=== PATIENT | female | born 1985 | race Caucasian/White ===

== ENCOUNTER 2025-10-11 08:14 | Emergency (ER) | payer OTHER, SELFPAY ==
--- NOTE | ~2025-10-11 | XR_ITS ---
EXAMINATION: XR foot RT min 3V DATE: 10/11/2025 08:36 INDICATION: Pain TECHNIQUE: Right foot were obtained. COMPARISON: None. IMPRESSION: 1. No displaced fracture dislocation or aggressive bone lesion seen. 2. No suspicious radiopaque foreign body seen. Reviewed, dictated and finalized at location A. 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
--- OUTSIDE RECORDS SUMMARY | 2025-10-11 08:19 | XMS_ITS | Clinical Summary ---
Author Organization [facility] Address [address] [place] [address] Care Team Providers Care Vehicle Modification Technician Name Role Phone Lito Spain MD Primary Care Provider [phone] Source Comments [facility],non-owned Affiliates and Associated Physician Practices is amultiple site organization consisting of ambulatory clinics and hospital sitesin [place], [place], [place] and [place]. This disclosure is being madepursuant to the Care Everywhere program and may not contain all information available regarding this patient. Last updated 18.[facility] Allergies Active Allergy Reactions Criticality Noted Date Comments Amoxicillin 11/12/2016 Azithromycin 11/12/2016 Doxycycline 11/12/2016 Penicillins 11/12/2016 Medications * Be aware that medications may not be up to date on this document. Alwaysverify current medications with the patient. Norethin-Eth Estrad-Fe Biphas (LO LOESTRIN FE PO) Active METFORMIN HCL PO Act huan glipiZIDE (GLUCOTROL) 10 MG tablet Take one tablet by mouth twice a day before meals. 05/09/2019 Active lisinopril (PRINIVIL; ZESTRIL) 10 MG tablet Take 10 mg by mouth once daily 01/26/2019 Active norethin-eth estrad-fe biphas (LO LOESTRIN FE) tablet Active predniSONE (DELTASONE) 20 MG tabletIndication s:Dermatitis Take 1 tablet by mouth 2 times daily 14 tablet 05/10/2019 Active Active Problems Problem Noted Date Diagnosed Date Type 2 diabetes mellitus 12/15/2011 Overview (05/10/2019): Overview: Type 2 DM Calculus of kidney 05/15/2005 Overview (05/10/2019): Overview: Nephrolithiasis Social History Tobacco Use Types Packs/Day Years Used Date Smoking Tobacco: Never Smokeless Tobacco: Never Comments No Sex and Gender Information Value Date Recorded Sex Assigned at Not on file Legal Sex Female 2:40 PM [employer] Gender Identity Not on file Sexual Orientation Not on file Last Filed Vital Signs Vital Sign Reading Time Taken Comments Blood Pressure 116/78 05/10/2019 6:22 PM CDT Pulse 93 05/10/2019 6:22 PM CDT Temperature 36.9 C (98.5 F) 05/10/2019 6:22 PM CDT Respiratory Rate 17 05/10/2019 6:22 PM CDT Oxygen Saturation 97% 05/10/2019 6:22 PM CDT Inhaled Oxygen Concentration - - Weight 88.5 kg (195 lb) 05/10/2019 6:22 PM CDT Height 162.6 cm (5' 4) 05/10/2019 6:22 PM CDT Body Mass Index 33.47 05/10/2019 6:22 PM CDT Plan of Treatment Health Maintenance Due Date Last Done Comments HIV SCREENING 2002 HEPATITIS C SCREENING 01/24/2005 DIABETES-SERUM CREATININE 2005 DTAP/TDAP/TD VACCINES (1 - Tdap) 2006 HEPATITIS B VACCINE (1 of 3 - 19+ 3-dose series) 2006 HPV VACCINE (1 - 3-dose SCDM series) 2014 DIABETES-FOOT EXAM WITH MONOFILAMENT 05/10/2019 DIABETES-HGB A1C 05/10/2019 DEPRESSION SCREENING 11/30/2024 DIABETES - URINE PROTEIN SCREENING 11/30/2024 COVID-19 VACCINE ( season) 2025 INFLUENZA VACCINE (#1) 2025 8, 08/31/2017, 09/17/2016, Additional history exists ZOSTER VACCINE (1 of 2) 2037 HIB VACCINE Aged Out No longer eligi ble based on patient's age to complete this topic MENINGOCOCCAL (Group B) VACCINE SHARED DECISION-MAKING Aged Out No longer eligible based on patient's age to complete this topic MENINGOCOCCAL GROUPS A/C/Y/W VACCINE Aged Out No longer eligible based on patient's age to complete this topic PNEUMOCOCCAL VACCINE Aged Out No long er eligible based on patient's age to complete this topic [place] [address] Care Teams Vehicle Modification Technician Relationship Specialty Start Date End Date [place] [address] PCP - General Internal Medicine 11/12/16
--- OUTSIDE RECORDS SUMMARY | 2025-10-11 08:19 | XMS_ITS | Clinical Summary ---
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 Name Role Phone Lito Spain MD Primary Care Provider [phone] Allergies Active Allergy Reactions Criticality Noted Date Comments Amoxicillin Unknown 11/12/2016 Azithromycin Rash 11/12/2016 Reaction: Rash, , Doxycycline Rash 11/12/2016 Reaction: Rash, Penicillins Rash 11/12/2016 Reaction: Rash, Medications norethindrone ac-eth estradiol (MICROGESTIN 12/19) 1-20 mg-mcg per tablet 9 Active valACYclovir (VALTREX) 500 mg tablet 1 Active semaglutide (OZEMPIC) 2 mg/dose (8 mg/3 mL) pen injector injectionIndica tions:type 2 diabetes mellitus Inject 2 mg under the skin every 7 days E11.9 9 mL 4 4 Active empagliflozin-m etformin (Synjardy XR) 25-1,000 mg tablet, IR & ER, biphasic 24hrIndications :type 2 diabetes mellitus Take 1 tablet by mouth daily E11.65 90 tablet 4 4 Active metFORMIN (GLUCOPHAGE) 1,000 mg tablet Take 1 tablet (1,000 mg total) by mouth nightly E11.65 90 tablet 4 4 Active buPROPion SR (ZYBAN) 150 mg 12 hr tabletIndicatio ns:Mood disorder with depressive features due to general medical condition TAKE 1 TABLET TWICE A DAY 180 tablet 3 5 Active blood-glucose sensor device 1 Device continuously Change every 15 days. E11.65 6 each 3 5 Active atorvastatin (LIPITOR) 10 mg tablet TAKE 1 TABLET DAILY 90 tablet 3 5 Active tiZANidine (ZANAFLEX) 4 mg tabletIndicatio ns:Muscle Spasm Take 1 tablet (4 mg total) by mouth every 6 (six) hours as needed for muscle spasms 30 tablet 5 Active lisinopriL (PRINIVIL,ZESTR IL) 10 mg tabletIndicatio ns:Type 2 diabetes mellitus with hyperglycemia, without long-term current use of insulin (HCC) TAKE 1 TABLET DAILY 100 tablet 1 5 Active Active Problems Problem Noted Date Diagnosed Date Annual physical exam 05/24/2025 Assessment & Plan (05/24/2025 8:27 AM CDT): Visit preventive in nature. We reviewed medications, chronic conditions, risk factors, lifestyle recommendations. Reviewed immunization recommendations. Follow-up in 1 year for annual wellness. Hypertension associated with diabetes 05/24/2025 Assessment & Plan (05/24/2025 8:29 AM CDT): Well controlled on lisinopril. Will continue. Tachycardia 01/27/2024 Assessment & Plan (01/27/2024 3:33 PM BAR USEFUL OR BUSSER): ECG reviewed. Sinus tachycardia without other concerning findings. Will continue to monitor. Freestyle Leydi continuous glucose monitoring de 10/08/2023 Assessment & Plan (08/07/2025 3:18 PM CDT): Continuous glucose monitor (cgm) applied from 07/25/2025 to 0 08/07/2025 This device was placed for monitor and treatment of blood sugar. Interpretation of data- average glucose 145, in target range 79%, hyperglycemia 21 %, 0 % hypoglycemia Assessment & Plan (02/01/2025 3:43 PM BAR USEFUL OR BUSSER): Continuous glucose monitor (cgm) applied from 01/19/2025 to 02/01/2025 This device was placed for monitor and treatment of blood sugar. Interpretation of data- average glucose 161, in target range 67 %, hyperglycemia 23 %, 0 % hypoglycemia Assessment & Plan (08/04/2024 9:33 AM CDT): Continuous glucose monitor (cgm) applied from 07/21/2024 to 08/03/2024 This device was placed for monitor and treatment of blood sugar. Interpretation of data- average glucose 159, in target range 68 %, hyperglycemia 30 %, 2 % hypoglycemia Assessment & Plan (10/08/2023 4:57 PM BAR USEFUL OR BUSSER): Continuous glucose monitor (cgm) applied from 09/25/2023 to 10/08/2023 This device was placed for monitor and treatment of blood sugar. Interpretation of data- average glucose 179, in target range 54%, hyperglycemia 46%, 0 hypoglycemia Overweight with body mass in dex (BMI) of 28 to 28.9 in adult 11/19/2021 Assessment & Plan (08/04/2024 9:34 AM CDT): This is a chronic condition which has improved 7 lbs. Weight loss since last office visit Encouraged healthy eating which includes a low carb diet. Avoiding processed foods, sweets and fried foods. Encouraged 30 minutes of walking at least 5 days per week Assessment & Plan (08/04/2024 9:34 AM CDT): >>ASSESSMENT AND PLAN FOR CLASS 1 OBESITY DUE TO EXCESS CALORIES WITH SERIOUS COMORBIDITY AND BODY MASS INDEX (BMI) OF 30.0 TO 30.9 IN ADULT WRITTEN ON 11/19/2021 11:52 AM BY PILO GUTIERREZ NP Discussed healthy diet and importance of regular physical activity. Assessment & Plan (08/04/2024 9:34 AM CDT): >>ASSESSMENT AND PLAN FOR CLASS 1 OBESITY DUE TO EXCESS CALORIES WITH SERIOUS COMORBIDITY AND BODY MASS INDEX (BMI) OF 30.0 TO 30.9 IN ADULT WRITTEN ON 05/20/2023 2:17 PM BY JEN COLINDRES NP This is a chronic condition which is improving 7 lb weight loss since January 22 Started on Ozempic 0.25 mg for 4 weeks then proceed to 0.5 mg on week 5 Assessment & Plan (08/04/2024 9:34 AM CDT): >>ASSESSMENT AND PLAN FOR CLASS 1 OBESITY DUE TO EXCESS CALORIES WITH SERIOUS COMORBIDITY AND BODY MASS INDEX (BMI) OF 30.0 TO 30.9 IN ADULT WRITTEN ON 10/08/2023 4:56 PM BY JEN COLINDRES NP This is a chronic condition which continues Additional 8 lb weight loss since last office visit Will increase Ozempic to 1 mg to promote further weight loss Encouraged healthy eating and exercise Assessment & Plan (08/04/2024 9:34 AM CDT): >>ASSESSMENT AND PLAN FOR CLASS 1 OBESITY DUE TO EXCESS CALORIES WITH SERIOUS COMORBIDITY AND BODY MASS INDEX (BMI) OF 30.0 TO 30.9 IN ADULT WRITTEN ON 12/03/2023 4:08 PM BY HARRIS RODRÍGUEZ NP Continue with diabetic diet. Hyperlipidemia associated with type 2 diabetes nita lay 12/07/2020 Assessment & Plan (05/24/2025 8:27 AM CDT): Lipid panel ordered. Will plan accordingly once results are received. Continues on atorvastatin. Assessment & Plan (08/04/2024 9:32 AM CDT): This is a chronic condition which is at goal . Goal is LDL less than 70 Continue atorvastatin Encouraged to eat healthy, include fresh fruits and vegetables daily and avoid eating fried foods more than once per week. Assessment & Plan (12/03/2023 4:08 PM BAR USEFUL OR BUSSER): LDL 59. Tolerating statin. Will continue to monitor. Assessment & Plan (10/08/2023 4:58 PM BAR USEFUL OR BUSSER): This is a chronic condition which is not at goal of LDL less than 70 Continue atorvastatin Encouraged to eat healthy, include fresh fruits and vegetables daily and avoid eating fried foods more than once per week. Encouraged to take medications as prescribed. Assessment & Plan (12/07/2020 11:56 PM BAR USEFUL OR BUSSER): Lipid panel ordered; will call w/results when received. Reviewed diet/exercise recommendations. Mild episode of recurrent major depressive disor francisco 11/08/2019 Assessment & Plan (12/03/2023 4:08 PM BAR USEFUL OR BUSSER): Reports stable on bupropion. No changes. Will continue to monitor. Assessment & Plan (11/19/2021 11:54 AM BAR USEFUL OR BUSSER): No changes in current regimen. Assessment & Plan (07/23/2021 9:44 PM CDT): Feels moods are improving and is happy with buproprion. No changes at this time. Discussed benefits of counseling with patient. Assessment & Plan (12/08/2020 12:00 AM BAR USEFUL OR BUSSER): Reports good control of depression w/current regimen. No changes to be made at this time. Reviewed med Ses & scheduling. Reviewed red flags. Assessment & Plan (12/20/2019 8:19 AM BAR USEFUL OR BUSSER): Reports great improvement w/depression on current dose. Reports good control of depression w/current regimen. No changes to be made at this time. Reviewed med Ses & scheduling. Reviewed red flags. Assessment & Plan (11/08/2019 8:27 AM BAR USEFUL OR BUSSER): Had been on wellbutrin previously but stopped for unknown reasons. Recently resumed on her own; had pills at home. Would like her to f/u in 5-7 weeks. Feels that it is improving her mood already. Feels less on edge. Type 2 diabetes mellitus wit hout complication, without long-term current use of insulin 12/15/2011 Overview (03/05/2017): Type 2 DM Assessment & Plan (05/24/2025 8:28 AM CDT): Near goal. Continues working closely with endocrinology. Assessment & Plan (08/04/2024 9:36 AM CDT): This is a chronic condition which is at goal with 2% hypoglycemia between 12:00 a.m. and 3:00 a.m.. Goal is less than 7%. Personally reviewed most recent A1c - Lab Results Component Value Date HGBA1C 6.6 08/04/2024 Personally reviewed POC blood sugar- at goal of 80-180 Lab Results Component Value Date POCGLU 151 08/04/2024 Medication- Stop Jardiance 25mg po daily and Metformin 1000mg po twice daily. Switch to Synjardy 25/1000mg 1 tablet daily Stop glipizide 10mg po twice daily. Increase ozempic 2 mg weekly. - may take 2 1mg injection until current supply is completed. Monitor blood sugar continuously with cgm. Upgraded to Elydi 3 Encouraged annual eye exam. last dilated eye exam was [facility] Monofilament foot exam completed. Protective senses intact eGFR- 107 Kidney function-normal Urine microalbumin/creatinine ratio - at goal. Goal is <30 Continue lisinopril Assessment & Plan (01/27/2024 3:32 PM BAR USEFUL OR BUSSER): Blood glucose 209 today. Continue with hydration and increase to solids as tolerated. Continue monitoring blood glucose at home. Red flags reviewed. Assessment & Plan (12/03/2023 4:09 PM BAR USEFUL OR BUSSER): A1c improving. 7.5% when last checked with Endo. Strong family hx. Continues to follow with endocrinology. Assessment & Plan (10/08/2023 4:55 PM BAR USEFUL OR BUSSER): This is a chronic condition which is inadequately controlled, improving not at goal of less than 7%. Personally reviewed most recent A1c - Lab Results Component Value Date HGBA1C 7.5 10/08/2023 Personally reviewed POC blood sugar- at goal 80-180 Lab Results Component Value Date POCGLU 131 10/08/2023 Medication- continue Jardiance 25mg po daily, Metformin 1000mg po twice daily, glipizide 10mg po twice daily. Increase 1mg weekly. Monitor blood sugar continuously with freestyle leydi 2 sensor. Encouraged annual eye exam. Monofilament foot exam completed. protective senses intact Personally reviewed CMP eGFR- 112 Kidney function- normal Urine microalbumin/creatinine ratio - at goal <30 treated with lisinopril B/P today- at goal of <140/90. continue lisinopril Personally reviewed lipid panel. Not at Goal of less than 70. Continue atorvastatin Assessment & Plan (05/20/2023 2:19 PM CDT): This is a chronic condition which is improving, but not at goal of less than 7%. Personally reviewed most recent A1c - Lab Results Component Value Date HGBA1C 8.1 05/20/2023 Personally reviewed POC blood sugar- at goal 80-180 Lab Results Component Value Date POCGLU 142 05/20/2023 Medication- Continue Jardiance 25mg po daily, Metformin 1000mg po twice daily, glipizide 10mg po twice daily. Add ozempic 0.25 mg weekly for 4weeks, on week #5 increase ozempic to 0.5mg weekly. Monitor blood sugar continuously with sensor. Encouraged annual eye exam. last dilated eye exam was completed in 01/22 Monofilament foot exam completed. protective senses intact Personally reviewed CMP eGFR- 112 Kidney function- normal Urine microalbumin/creatinine ratio - at goal <30 reated with lisinopril B/P today- at goal of <140/90. continue lisinopril. Personally reviewed lipid panel. at Goal of less than 70. Continue atorvastatin Discussed the progression of the disease of diabetes Discussed insulin resistance and how it is affecting her body Discussed insulin production Discussed the use Ozempic and how this peptide will affect her body Reviewed how to given Ozempic injection Denies any history of thyroid cancer or pancreatitis Discussed side effects of Ozempic her weight loss Encouraged to call office for side effects of nausea vomiting or abdominal pain Assessment & Plan (11/19/2021 11:53 AM BAR USEFUL OR BUSSER): Lab Results Component Value Date HGBA1C 8.3 11/19/2021 HGBA1C 8.9 (H) 07/19/2021 HGBA1C 8.1 (H) 12/19/2019 Decrease in a1c, patient notes BS levels for the past 2 weeks have improved. Motivated to work on diet and exercise. Will plan to repeat a1c in 3 months and makes changes as needed if elevated. Reviewed goal <7%. Assessment & Plan (07/23/2021 9:43 PM CDT): Lab Results Component Value Date HGBA1C 8.9 (H) 07/19/2021 HGBA1C 8.1 (H) 12/19/2019 HGBA1C 9.8 (H) 06/06/2019 Patient has increased motivation to work on diet and lifestyle changes. Reviewed increasing Jardiance but would like to hold off for 3 months until next A1C check. Reviewed need to lose weight and track diet/decrease concentrated sweets. Stressed importance of monitoring blood sugars at home and bringing blood sugar log to next appointment in 3 months. Foot exam normal today. Assessment & Plan (12/08/2020 12:03 AM BAR USEFUL OR BUSSER): No labs since last year. Lab Results Component Value Date HGBA1C 8.1 (H) 12/19/2019 HGBA1C 9.8 (H) 06/06/2019 Refilled all diabetic medications. . Reviewed dietary/exercise recommendations. Instructed to perform daily foot check. Reviewed medication side effects & scheduling. To check/record FSBS & bring to appointments. Labs ordered; will call with results when received. To make follow up appointment in 6 months. Reviewed red flags; what would warrant further evaluation. Assessment & Plan (11/08/2019 8:29 AM BAR USEFUL OR BUSSER): Has not had labs checked since last appt. Will go sometime this week to completed. Reviewed dietary/exercise recommendations. Instructed to perform daily foot check. Reviewed medication side effects & scheduling. To check/record FSBS & bring to appointments. Labs ordered; will call with results when received. To make follow up appointment in 3 months. Reviewed red flags; what would warrant further evaluation. Assessment & Plan (06/08/2019 12:51 PM CDT): Poorly controlled diabetic. Poor compliance with diabetic treatment and testing. Last A1c=9.8% Stressed need to watch intake and monitor blood sugars. Reviewed end-organ damage related to elevated blood sugars. Reviewed recommendations in diet and exercise. Stressed need to take medications as ordered. Discussed diabetic eye exam; need yearly. To send any past eye exams to our office. Stressed need to have labs drawn so we can better treat diabetes. Will contact with lab results once received. Jardiance 10mg daily sent. Reviewed med SE & scheduling. Will continue metformin & glipizide. Will have labs repeated 3 months after addition of Jardiance & make appt to go over results. Resistant to basal insulins at this time. Will trial jardiance to see if any improvement. Discussed endocrine referral, discussed different medications. Stressed need for dietary changes. Resolved Problems Problem Noted Date Diagnosed Date Resolved Date Viral gastroenteritis 01/27/20242023 Assessment & Plan (01/27/2024 3:35 PM BAR USEFUL OR BUSSER): Tachycardic. She is urinating and starting to tolerate solids today. Discussed recommendation for ED for IV hydration. With her symptoms improving today she will monitor closely at home and we will send in Reglan. Reviewed the scheduling and side effects. We gave strict instructions to present to the ED if worsening tonight. Message through [employer] tomorrow with update. She is in agreement with plan and states understanding. BMI 33.0-33.9,adult 12/07/2020 11/19/20 Assessment & Plan (07/23/2021 9:45 PM CDT): Discussed healthy diet and importance of regular physical activity. Discussed benefit of weight loss on overall health. Assessment & Plan (12/07/2020 11:56 PM BAR USEFUL OR BUSSER): Reviewed need to lose weight, reviewed health benefits. Reviewed recommendations for daily intake & activity 20-30 minutes/day. Discussed healthy diet and importance of regular physical activity. Left ankle strain, initial encounter 12/19/2019 12/07/2020 Assessment & Plan (12/20/2019 8:19 AM BAR USEFUL OR BUSSER): NSAIDs of choice, to apply ice to area x15 min every 1-2 hours. Discussed RICE. Will keep elevated. Discussed gentle ROM. Reviewed red flags; what would warrant rtc. Rib pain on left side 11/08/20192019 Assessment & Plan (11/08/2019 8:28 AM BAR USEFUL OR BUSSER): Declines rib xray. Discussed splinting area when coughing/sneezing, with position changes. To continue otc ibuprofen/tylenol. Tramadol sent for more severe pain. Aware that it may take 6-8 weeks for pain to improve. Discussed cough/deep breath to prevent consolidation in lungs. Reviewed red flags. BMI 34.0-34.9,adult 11/07/2019 12/07/19 Assessment & Plan (12/20/2019 8:20 AM BAR USEFUL OR BUSSER): Reviewed need to lose weight, reviewed health benefits. Reviewed recommendations for daily intake & activity 20-30 minutes/day. Discussed healthy diet and importance of regular physical activity. Assessment & Plan (11/08/2019 8:26 AM BAR USEFUL OR BUSSER): Reviewed need to lose weight, reviewed health benefits. Reviewed recommendations for daily intake & activity 20-30 minutes/day. Discussed healthy diet and importance of regular physical activity. Rash 06/30/2016 12/08/2020 Overview (03/05/2017): Rash Calculus of kidney 05/15/2005 3 Overview (03/05/2017): Nephrolithiasis Encounters Date Type Department Care Team Description 08/10/2025 Orders Only [facility] [address] [place] [address] Ariane Morse NP Pain in right upper arm 08/08/2025 Results Follow-Up [facility] Care at [address] [phone] Jen Colindres NP Albumin Creatinine Ratio, Urine 08/07/2025 3:30 PM CDT - 08/07/2025 11:59 PM CDT Hospital Encounter [facility] Outpatient Lab - Outpatient Center at [address] [address] Type 2 diabetes mellitus with hypoglycemia without coma, without long-term current use of insulin (HCC) Discharge Disposition: Discharge to home or self care 08/07/2025 3:30 PM CDT Office Visit [facility]ocrine [facility] at [address] [place] [phone] Jen Colindres NP Type 2 diabetes mellitus with hypoglycemia without coma, without long-term current use of insulin (HCC) (Primary Dx); Hypertension associated with diabetes (HCC); Hyperlipidemia associated with type 2 diabetes mellitus (HCC); Freestyle Leydi continuous glucose monitoring device; Overweight with body mass index (BMI) of 28 to 28.9 in adult 07/13/2025 Results [facility]Up [facility] [address] [address] Ariane Morse NP XR Elbow Right 3+ Vw, MRI Shoulder Right WO Contrast 07/12/2025 Results [facility] [address] [address] Harris Rodríguez NP Hepatitis C antibody Blood, Hepatitis B surface antibody (immune status) Blood, Hepatitis B core antibody, total Blood, Additional followed-up results: 6 07/11/2025 1:51 PM CDT - 07/11/2025 11:59 PM CDT Hospital Encounter [address] [address] Pain in right upper arm Discharge Disposition: Discharge to home or self care 07/11/2025 9:15 AM CDT Office Visit [facility] at [address] [place] [address] Lacie Scales NP Irritation of right eye (Primary Dx); Acute viral conjunctivitis of right eye 07/11/2025 8:45 AM CDT Lab [facility] [address] [place] [phone] Annual physical exam; Hyperlipidemia associated with type 2 diabetes mellitus (HCC) from Last 3 Months Immunizations Immunization Administration Dates Next Due Influenza, Quadrivalent, Erika l Culture-based MDCK, Preservative Free, Antibiotic Free, Intramuscular 09/25/2022 Influenza, Quadrivalent, Spl it, Intramuscular 09/22/2019 Influenza, Quadrivalent, Spl it, Preservative Free, Intramuscular 09/24/2023,09/20/2020,09/21/2019,09/22,09/17/2016,10/29/2015 Influenza, Trivalent, IM (MDV) 09/26/2021,2013 Influenza, Trivalent, Preser vative Free, Intramuscular 09/21/2024 Influenza, Unspecified 09/22/2022,2020,09/13/2020,09/22,08/31/2018,08/31/2017 Moderna SARS-CoV-2 Monovalen t Vaccination (12+ YRS) 01/18/2021,12/21/2020 Rho (D) Immune Globulin, IV or IM 03/06/2016 Surgical History Surgery Date Site/Laterality Comments LASIK 11/30/2017 - 12/30/2017 Medical History Medical History Date Comments Type 2 diabetes mellitus Diabete s type 2; Comments: [facility] 02/12/2015 - Hx Other Medical 01/2014 kidney stones; Comments: [facility] 02/12/2015 - Covid-19 11/2020 Diabetic retinopathy associa mack with type 2 diabetes mellitus (HCC) Calculus of kidney 05/15/2005 Nephrolithias is Anxiety Viral gastroenteritis 01/27/2024 Family History Medical History Relation Name Comments Arthritis Father Navjot Diabetes Father Navjot Heart disease Father Navjot Cardiovascular disease; Hypertension Father Navjot Hypertension; Obesity Father Navjot Other Father Navjot OR in 2009; Skin cancer Father Navjot Cancer, skin; Diabetes Father's Sister x 2 Diabetes type II Father's Sister x 2 Diabetes mellitus type 2; Diabetes Maternal Grandfather Brendon Breast cancer Mother Cindy Cancer, breast ; Cancer Mother Cindy Diabetes Mother Cindy Diabetes type II Mother Cindy Diabetes me llitus type 2; Obesity Mother Cindy Relation Name Status Comments Father Navjot Alive Father's Sister x 2 Maternal Grandfather Brendon Alive Mother Cindy Alive Social History Tobacco Use Types Packs/Day Years Used Date Smoking Tobacco: Never Smokeless Tobacco: Never Tobacco Cessation:Counseling Given: Not Answered Alcohol Use Standard Drinks/Week Comments Not Currently 0 (1 standard drink = 0.6 oz pur e alcohol) very occasionally AUDIT-C Answer Date Recorded Q1: How often do you have a drink containing alc ohol? Monthly or less 01/27/2024 Q2: How many drinks containi ng alcohol do you have on a typical day when you are drinking? 1 or 2 01/27/2024 Q3: How often do you have si x or more drinks on one occasion? Never 01/27/2024 PHQ-2 Answer Date Recorded PHQ-2 Total Score (If total score is 3 or more points, staff should administer the PHQ-9) 0 07/04/2025 Comments No Sex and Gender Information Value Date Recorded Sex Assigned at Not on file Legal Sex Female 3:36 AM BAR USEFUL OR BUSSER Gender Identity Not on file Sexual Orientation Not on file Last Filed Vital Signs Vital Sign Reading Time Taken Comments Blood Pressure 96/64 08/07/2025 3:14 PM CDT Pulse 102 07/11/2025 8:58 AM CDT Temperature 36.7 C (98 F) 07/11/2025 8:58 AM CDT Respiratory Rate 16 07/11/2025 8:58 AM CDT Oxygen Saturation 98% 07/11/2025 8:58 AM CDT Inhaled Oxygen Concentration - - Weight 75.9 kg (167 lb 4.8 oz) 08/07/2025 3:14 P M CDT Height 164.5 cm (5' 4.76) 08/07/2025 3:14 PM CD T Body Mass Index 28.05 08/07/2025 3:14 PM CDT Plan of Treatment Health Maintenance Due Date Last Done Comments Cervical Cancer Screening 1987 DTaP/Tdap/Td Vaccine (1 - Tdap) 1998 Varicella Vaccines (1 of 2 - 13+ 2-dose series) 01/30/2000 Pneumococcal vaccine <65 (1 of 2 - PCV) 2006 HPV Vaccines (1 - 3-dose SCD M series) 2014 Dilated Eye Exam 01/09/2024 01/09/2023, , 12/02/2018 Covid-19 Vaccine (2024-2 6 season) 2025 09/21/2024, 09/24/2023, 10/04/2021, Additional history exists Influenza Vaccine (#1) 2025 , 09/24/2023, 09/25/2022, Additional history exists Foot Exam 08/04/2025 08/04/2024, 11/0 07/2023, 01/12/2023, Additional history exists Hemoglobin A1C 02/04/2026 08/07/2025, 03/0 03/2025, 08/04/2024, Additional history exists Regular Well Visit/Exam 18-64 05/24/2026, 01/12/2023, 03/17/2022 Depression Screening 07/04/2026 07/04/2025, 05/24/2025, 01/27/2024, Additional history exists Lipid Panel 07/11/2026 07/11/2025, 09/0 03/2024, 11/27/2023, Additional history exists eGFR 07/11/2026 07/11/2025, 09/0 03/2024, 11/27/2023, Additional history exists Albumin Creatinine Ratio, Urine 08/07/2026 08/07/2025, 08/04/2024, 11/27/2023, Additional history exists Hepatitis B Screening Completed 07/11/2025 Hepatitis C Screening Completed 07/11/2025 Procedures Procedure Name Priority Date/Time Associated Diagnosis Comments MRI SHOULDER RIGHT WO CONTRAST Schedule Routine, Read Routine (OP Routine) 08/08/2025 7:31 AM CDT Pain in right upper arm ALBUMIN CREATININE RATIO, URINE Routine 08/07/2025 3:54 PM CDT Type 2 diabetes mellitus with hypoglycemia without coma, without long-term current use of insulin (HCC) POCT HEMOGLOBIN A1C Routine 08/07/2025 3 :18 PM CDT Type 2 diabetes mellitus with hypoglycemia without coma, without long-term current use of insulin (HCC) POCT GLUCOSE Routine 08/07/2025 3:15 PM CDT Type 2 diabetes mellitus with hypoglycemia without coma, without long-term current use of insulin (HCC) XR SHOULDER RIGHT 2 OR MORE VIEWS Schedule Routine, Read Routine (OP Routine) 07/11/2025 2:07 PM CDT Pain in right upper arm XR ELBOW RIGHT 3 OR MORE VIEWS Schedule Routine, Read Routine (OP Routine) 07/11/2025 2:07 PM CDT Pain in right upper arm EGFR Routine 07/11/2025 8:41 AM CDT Annual physical exam DIFFERENTIAL AUTO Routine 07/11/2025 8:4 1 AM CDT Annual physical exam CBC WITH AUTO DIFFERENTIAL Routine 07/11/2025 8:41 AM CDT Annual physical exam COMPREHENSIVE METABOLIC PANEL Routine 07/11/2025 8:41 AM CDT Annual physical exam LIPID PANEL Routine 07/11/2025 8:41 AM CDT Hyperlipidemia associated with type 2 diabetes mellitus (HCC) Annual physical exam HEPATITIS B SURFACE ANTIGEN Routine 07/11/2025 8:41 AM CDT Annual physical exam HEPATITIS B CORE ANTIBODY, TOTAL Routine 07/11/2025 8:41 AM CDT Annual physical exam HEPATITIS B SURFACE ANTIBODY (IMMUNE STATUS) Routine 07/11/2025 8:41 AM CDT Annual physical exam HEPATITIS C ANTIBODY Routine 07/11/2025 8:41 AM CDT Annual physical exam DIABETIC EYE EXAM Routine 01/09/2023 from Last 3 Months or Most Recently Relevant to Health Maintenance Results * MRI Shoulder Right WO Contrast (08/08/2025 7:31 AM CDT) Anatomical Region Laterality Modality Upper Extremities Right Magnetic Reson ance Ariane Morse NP IMG MRI PROCEDURES Final Resu lt * Albumin Creatinine Ratio, Urine (08/07/2025 3:54 PM CDT) Albumin Ur <12.0 mg/L Comment: Interpretive Data No reference range established. Current interpretive data was last revised 2019. Testing performed by: [address] [place] [address] Creatinine Ur 23.0 mg/dL ESTELLA COREY Comment: Interpretive Data No reference range established. Current interpretive data was last revised 2019. Testing performed by: [address] [place]., [address] Albumin Creatinine Ratio, Ur See Comment 1 - 29 ESTELLA COREY Comment: Unable to calculate Testing performed by: [facility], [address] [place] [address]., [address] Urine 08/07/2025 3:54 PM CDT 08/07/2025 8:03 PM CDT Jen Colindres CORNER BEAD OPERATOR LAB URINE ORDERABLES Final Resu lt ESTELLA [id number] [facility] [place] [address] * (ABNORMAL) POCT hemoglobin A1c (08/07/2025 3:18 PM CDT) Hemoglobin A1C, POC 6.8(A) 4.0 - 5.6 % Blood 08/07/2025 3:18 PM CDT Jen Colindres CORNER BEAD OPERATOR POINT OF CARE TEST ORDERABLES F inal Result * POCT glucose (08/07/2025 3:15 PM CDT) Glucose Blood, POC 129 Normal Fasting 70 - 100, Random <200 mg/dL Blood 08/07/2025 3:15 PM CDT Jen Colindres CORNER BEAD OPERATOR POINT OF CARE TEST ORDERABLES F inal Result * XR Elbow Right 3+ Vw (07/11/2025 2:07 PM CDT) Anatomical Region Laterality Modality Upper Extremities, Elbow Right Compute d Radiography 07/12/2025 3:38 PM CDT Narrative 07/12/2025 3:40 PM CDT EXAM DESCRIPTION: 1. XR ELBOW RIGHT 3 OR MORE VIEWS; 2. XR SHOULDER RIGHT 2 OR MORE VIEWS REASON FOR STUDY: R arm pain Right shoulder pain. Pain in bicep region x1 month, no known injury. Pain with abduction, adduction, and raising arm above head. No pain with lifting or holding things. Denies elbow or shoulder pain directly, states it is in the bicep she feels. FINDINGS: Four views right shoulder and three views right elbow submitted without comparison. Right shoulder: No acute fracture. Alignment is normal. The joint spaces are normal. Right elbow: No acute fracture. Alignment is normal. The joint spaces are normal. No effusion. Mild olecranon bursitis. IMPRESSION: 1. Normal right shoulder evaluation. 2. Mild right olecranon bursitis. 3. If clinical concern for acute biceps pathology, may consider further evaluation with MRI. THIS IS AN ELECTRONICALLY VERIFIED FINAL REPORT 07/12/2025 3:40 PM - Electronically signed by Shakeel Martinez M.D. T: Report ID: [id number] Reading Location: [place] [address] Procedure Note Shakeel Martinez MD - 07/12/2025 EXAM DESCRIPTION: 1. XR ELBOW RIGHT 3 OR MORE VIEWS; 2. XR SHOULDER RIGHT 2 OR MORE VIEWS REASON FOR STUDY: R arm pain Right shoulder pain. Pain in bicep region x1 month, no known injury. Pain with abduction, adduction, and raising arm above head. No pain with lifting or holdingthings. Denies elbow or shoulder pain directly, states it is in the bicep shefeels. FINDINGS: Four views right shoulder and three views right elbow submitted without comparison. Right shoulder: No acute fracture. Alignment is normal. The joint spaces are normal. Right elbow: No acute fracture. Alignment is normal. The joint spaces are normal. No effusion. Mild olecranon bursitis. IMPRESSION: 1. Normal right shoulder evaluation. 2. Mild right olecranon bursitis. 3. If clinical concern for acute biceps pathology, may consider further evaluation with MRI. THIS IS AN ELECTRONICALLY VERIFIED FINAL REPORT 07/12/2025 3:40 PM - Electronically signed by Shakeel Martinez M.D. T: Report ID: [id number] Reading Location: [place] [address] Ariane Brooklyn Lito CORNER BEAD OPERATOR IMG XR PROCEDURES Final Resul t * XR Shoulder Right 2+ Vw (07/11/2025 2:07 PM CDT) Anatomical Region Laterality Modality Upper Extremities, Shoulder Right Comp uted Radiography 07/12/2025 3:38 PM CDT Narrative 07/12/2025 3:40 PM CDT EXAM DESCRIPTION: 1. XR ELBOW RIGHT 3 OR MORE VIEWS; 2. XR SHOULDER RIGHT 2 OR MORE VIEWS REASON FOR STUDY: R arm pain Right shoulder pain. Pain in bicep region x1 month, no known injury. Pain with abduction, adduction, and raising arm above head. No pain with lifting or holding things. Denies elbow or shoulder pain directly, states it is in the bicep she feels. FINDINGS: Four views right shoulder and three views right elbow submitted without comparison. Right shoulder: No acute fracture. Alignment is normal. The joint spaces are normal. Right elbow: No acute fracture. Alignment is normal. The joint spaces are normal. No effusion. Mild olecranon bursitis. IMPRESSION: 1. Normal right shoulder evaluation. 2. Mild right olecranon bursitis. 3. If clinical concern for acute biceps pathology, may consider further evaluation with MRI. THIS IS AN ELECTRONICALLY VERIFIED FINAL REPORT 07/12/2025 3:40 PM - Electronically signed by Shakeel Martinez M.D. T: Report ID: [id number] Reading Location: [id number] Procedure Note Shakeel Martinez MD - 07/12/2025 EXAM DESCRIPTION: 1. XR ELBOW RIGHT 3 OR MORE VIEWS; 2. XR SHOULDER RIGHT 2 OR MORE VIEWS REASON FOR STUDY: R arm pain Right shoulder pain. Pain in bicep region x1 month, no known injury. Pain with abduction, adduction, and raising arm above head. No pain with lifting or holdingthings. Denies elbow or shoulder pain directly, states it is in the bicep shefeels. FINDINGS: Four views right shoulder and three views right elbow submitted without comparison. Right shoulder: No acute fracture. Alignment is normal. The joint spaces are normal. Right elbow: No acute fracture. Alignment is normal. The joint spaces are normal. No effusion. Mild olecranon bursitis. IMPRESSION: 1. Normal right shoulder evaluation. 2. Mild right olecranon bursitis. 3. If clinical concern for acute biceps pathology, may consider further evaluation with MRI. THIS IS AN ELECTRONICALLY VERIFIED FINAL REPORT 07/12/2025 3:40 PM - Electronically signed by Shakeel Martinez M.D. T: Report ID: [id number] Reading Location: [place] [address] Ariane Morse CORNER BEAD OPERATOR IMG XR PROCEDURES Final Resul t * eGFR (07/11/2025 8:41 AM CDT) eGFR >90 >=60 mL/min/1. 73 m2 Comment: Interpretive Data Reference Interval Normal >/= 90 mL/min/1.73m2 Mildly decreased* 60 - 89 mL/min/1.73m2 Mildly to moderately decreased 45 - 59 mL/min/1.73m2 Moderately to severely decreased 30 - 44 mL/min/1.73m2 Severely decreased 15 - 29 mL/min/1.73m2 Kidney Failure < 15 mL/min/1.73m2 *Relative to young adult level Estimated glomerular filtration rate is determined by the 2020 CKD-EPI equation recommended by the National Kidney Foundation (A Unifying Approach to GFR Estimation: Recommendations of the NKF-ASK Task Force on Reassessing the Inclusion of Race in Diagnosing Kidney Disease, JASN 2020). The CKD-EPI equation should not be used for patients with unstable renal function and has not been validated in children and those over 70. Current interpretive data was last reviewed 2021. Testing performed by: [facility], [address] [place] [address], [place]., [address] Blood 07/11/2025 8:41 AM CDT 07/11/2025 3:22 PM CDT Harris Rodríguez NP LAB BLOOD ORDERABLES Final Result [facility] 1 [facility] Department of [facility] [place] [address] * Differential, auto (07/11/2025 8:41 AM CDT) Neutrophil abs 3.35 1.50 - 6.50 K/cumm Comment:Testing performed by : [facility], [address] [place] [address], [address] Imm gran abs 0.04 0.00 - 0.10 K/cumm [facility] (MISA) Comment:Testing performed by : [facility], [address] [place] [address], [address] Lymphocyte abs 2.84 0.80 - 3.30 K/cumm [facility] (MISA) Comment:Testing performed by : [facility], [address] [place] [address], [address] Monocyte abs 0.53 0.20 - 0.80 K/cumm [facility] (MISA) Comment:Testing performed by : [facility], [address] [place] [address], [address] Eosinophil abs 0.06 0.00 - 0.50 K/cumm [facility] (MISA) Comment:Testing performed by : [facility], [address] [place] [address], [address] Basophil abs 0.05 0.00 - 0.10 K/cumm [facility] (MISA) Comment:Testing performed by : [address], [address] Neutrophil pct 48.8 % [facility] (MISA) Comment: Interpretive Data Percent cell count reference ranges are not reported, since discordance with absolute values may lead to misinterpretation of CBC data. Current Interpretive Data was last revised on 2018. Testing performed by: [address], [address] Imm gran pct 0.6 % [facility] (MISA) Comment: Interpretive Data Percent cell count reference ranges are not reported, since discordance with absolute values may lead to misinterpretation of CBC data. Current Interpretive Data was last revised on 2018. Testing performed by: [address], [address] Lymphocyte pct 41.3 % [facility] (MISA) Comment: Interpretive Data Percent cell count reference ranges are not reported, since discordance with absolute values may lead to misinterpretation of CBC data. Current Interpretive Data was last revised on 2018. Testing performed by: [facility], [address] [place] [address]., [address] Monocyte pct 7.7 % ESTELLA BORREGO (MISA) Comment: Interpretive Data Percent cell count reference ranges are not reported, since discordance with absolute values may lead to misinterpretation of CBC data. Current Interpretive Data was last revised on 2018. Testing performed by: [address] [address] Eosinophil pct 0.9 % CLIFFORDNE R SALIMA (MISA) Comment: Interpretive Data Percent cell count reference ranges are not reported, since discordance with absolute values may lead to misinterpretation of CBC data. Current Interpretive Data was last revised on 2018. Testing performed by: [facility], [address] [place] [address]., [address] Basophil pct 0.7 % ESTELLA BORREGO (MISA) Comment: Interpretive Data Percent cell count reference ranges are not reported, since discordance with absolute values may lead to misinterpretation of CBC data. Current Interpretive Data was last revised on 2018. Testing performed by: [address] [address] Blood 07/11/2025 8:41 AM CDT 07/11/2025 2:56 PM CDT us Harris Rodríguez CORNER BEAD OPERATOR LAB BLOOD ORDERABLES Final Result ESTELLA BORREGO (MISA) 1 [facility] Department [place] [address] * (ABNORMAL) CBC with auto differential (07/11/2025 8:41 AM CDT) WBC 6.87 3.80 - 9.90 K/cumm Comment:Testing performed by : [address] [address] Hgb 15.4 11.9 - 15.5 g/dL ESTELLA BORREGO (MISA) Comment:Testing performed by : [address], [address] Hct 46.6(H) 35.6 - 45.5 % [facility] (MISA) Comment:Testing performed by : [facility], [address] [place] [address], [address] Plt 272 150 - 400 K/cumm [facility] (MISA) Comment:Testing performed by : [facility], [address] [place] [address], [address] MPV 10.3 9.1 - 12.3 fL [facility] (MISA) Comment:Testing performed by : [address], [address] RBC 5.17 3.90 - 5.20 M/cumm [facility] (MISA) Comment:Testing performed by : [address], [address] MCV 90.1 81.3 - 96.4 fL [facility] (MISA) Comment:Testing performed by : [address], [address] MCH 29.8 27.1 - 33.3 pg [facility] (MISA) Comment:Testing performed by : [address], [address] MCHC 33.0 32.3 - 35.7 g/dL [facility] (MISA) Comment:Testing performed by : [address], [address] RDW CV 12.0 11.1 - 14.9 % [facility] (MISA) Comment:Testing performed by : [address], [address] RDW SD 39.8 35.7 - 48.1 fL [facility] (MISA) Comment:Testing performed by : [address], [address] NRBC abs 0.00 0.00 - 0.01 K/cumm [facility] (MISA) Comment:Testing performed by : [address], [address] Blood 07/11/2025 8:41 AM CDT 07/11/2025 2:56 PM CDT Harris Rodríguez CORNER BEAD OPERATOR LAB BLOOD ORDERABLES Final Result ESTELLA BORREGO (MISA) 1 [facility] [place] [address] * Hepatitis C antibody Blood (07/11/2025 8:41 AM CDT) Hep C Ab Nonreactive Nonreactive Comment: Interpretive Data Nonreactive: Antibodies to HCV not detected. Does NOT exclude the possibility of recent exposure to HCV. Equivocal: Equivocal for HCV antibodies. Supplemental molecular testing will be automatically performed to determine infection status in accordance with current CDC screening recommendations. Reactive: Positive for HCV antibodies. This may represent current or past HCV infection. Supplemental molecular testing will be automatically performed to determine current infection status in accordance with current CDC screening recommendations. Interpretive data was last revised on 2020. Testing performed by: [facility], [address] [place] [address]., [address] Blood 07/11/2025 8:41 AM CDT 07/11/2025 2:56 PM CDT us Harris Rodríguez NP LAB MICROBIOLOGY - GENERAL ORDERABLES Final Result Performing Organization Address [facility] Co de Phone Number ESTELLA BORREGO (AUBREY) 1 [facility] [place] [address] * Hepatitis B core antibody, total Blood (07/11/2025 8:41 AM CDT) Hep B core IgG/IgM Nonreactive Nonreactive Comment:Testing performed by : [facility], [address] [place] [address]., [address] Blood 07/11/2025 8:41 AM CDT 07/11/2025 5:57 PM CDT us Harris Rodríguez NP LAB MICROBIOLOGY - GENERAL ORDERABLES Final Result ESTELLA BORREGO (MISA) 1 [facility] [place] [address] * Hepatitis B surface antibody (immune status) Blood (07/11/2025 8:41 AM CDT) HBsAb (immune status) Nonreactive Comment: Interpretive Data Nonreactive: This result is consistent with a lack of immunity to Hepatitis B Virus when used in the setting of routine screening. Equivocal: The immune status of the individual should be further assessed, if appropriate, after consideration of clinical status, risk factors, and additional diagnostic information. Reactive: This result is consistent with immunity to Hepatitis B Virus when used in the setting of routine screening. Current interpretive data was last revised on 20. Testing performed by: [facility], [address] [place] [address]., [address] Blood 07/11/2025 8:41 AM CDT 07/11/2025 2:56 PM CDT Harris Rodríguez NP LAB MICROBIOLOGY - GENERAL ORDERABLES Final Result Performing Organization Address City/[facility]/ZIP Co de Phone Number [facility] (AUBREY) 1 [facility] [place] [address] * Hepatitis B Surface Antigen Blood (07/11/2025 8:41 AM CDT) HepBsAg Nonreactive Nonreactive Comment:Testing performed by : [facility], [address] [place] [address]., [address] Blood 07/11/2025 8:41 AM CDT 07/11/2025 2:56 PM CDT Harris Rodríguez NP LAB MICROBIOLOGY - GENERAL ORDERABLES Final Result [facility] (MISA) 1 [facility] [place] [address] * Lipid panel (07/11/2025 8:41 AM CDT) Cholesterol 134 30 - 199 mg/dL Comment: Interpretive Data Ages < or = 19 years Acceptable: <170 mg/dL Borderline high: 170-199 mg/dL High: >or= 200 mg/dL Ages > or = 20 years Desirable: <200 mg/dL Borderline high: 200-239 mg/dL High: >or= 240 mg/dL Literature References: 1. Expert Panel on Integrated Guidelines for Cardiovascular Health and Risk Reduction in Children and Adolescents. Pediatrics 2011;128:S213 2. NCEP Expert Panel. Circulation 2004;110:227 Current Interpretive Data was last revised on 2018. Testing performed by: [facility], [address] [place] [address]., [address] Triglycerides 87 <=149 mg/dL [facility] (MISA) Comment: Interpretive Data Ages < or = 9 years Acceptable: <75 mg/dL Borderline high: 75-99 mg/dL High: >or= 100 mg/dL Ages 10 to 20 years Acceptable: <90 mg/dL Borderline high: 90-129 mg/dL High: >or= 130 mg/dL Ages > or = 20 years Desirable: <150 mg/dL Borderline high: 150-199 mg/dL High: 200-499 mg/dL Very high: >or= 499 mg/dL Literature References: 1. Expert Panel on Integrated Guidelines for Cardiovascular Health and Risk Reduction in Children and Adolescents. Pediatrics 2011;128:S213 2. NCEP Expert Panel. Circulation 2004;110:227 Current Interpretive Data was last revised on 2018. Testing performed by: [facility], [address] [place] [address]., [address] HDL 61 >=40 mg/dL ESTELLA [facility] (MISA) Comment: Interpretive Data Ages < or = 19 years Acceptable: >45 mg/dL Borderline low: 40-45 mg/dL Low: <40 mg/dL Ages > or = 20 years Desirable: >or= 60 mg/dL Low: <40 mg/dL Literature References: 1. Expert Panel on Integrated Guidelines for Cardiovascular Health and Risk Reduction in Children and Adolescents. Pediatrics 2011;128:S213 2. NCEP Expert Panel. Circulation 2004;110:227 Current Interpretive Data was last revised on 2018. Testing performed by: [facility], [address] [place] [address]., [address] LDL, calculated 56 <=129 mg/dL [facility] (MISA) Comment: Interpretive Data Ages < or = 19 years Acceptable: <110 mg/dL Borderline high: 110-129 mg/dL High: >or= 130 mg/dL Ages > or = 20 years Optimal: <100 mg/dL Near optimal: 100-129 mg/dL Borderline high: 130-159 mg/dL High: >160 mg/dL Calculated using the Gaston LDL-C estimating equation. This equation was implemented on 2024. Prior to this date LDL-C was estimated using the Friedewald equation. Literature References: 1. Expert Panel on Integrated Guidelines for Cardiovascular Health and Risk Reduction in Children and Adolescents. Pediatrics 2011;128:S213 2. NCEP Expert Panel. Circulation 2004;110:227 3. Gaston Smlals et al. IVAN Cardiol. 2020 March 30;5(5):540-548. doi: 10.1001/jamacardio.2020.0013 Current Interpretive Data was last revised on 2024. Testing performed by: [address] [address] Non-HDL Cholesterol 73 mg/dL ESTELLA BORREGO (MISA) Comment: Interpretive Data Ages < or = 19 years Acceptable: <120 mg/dL Borderline high: 120-144 mg/dL High: >145 mg/dL Ages > or = 20 years When triglycerides are >200 mg/dL, Non-HDL cholesterol is a secondary target of therapy with treatment goals that are 30 mg/dL greater than the LDL cholesterol target. Literature References: 1. Expert Panel on Integrated Guidelines for Cardiovascular Health and Risk Reduction in Children and Adolescents. Pediatrics 2011;128:S213 2. NCEP Expert Panel. Circulation 2004;110:227 Current Interpretive Data was last revised on 2018. Testing performed by: [address] [address] Chol/HDL ratio 2 VALERIA BORREGO (MISA) Comment:Testing performed by : [address] [address] Blood 07/11/2025 8:41 AM CDT 07/11/2025 2:56 PM CDT us Harris Rodríguez NP LAB BLOOD ORDERABLES Final Result ESTELLA BORREGO (MISA) 1 [facility] Department [place] [address] * Comprehensive metabolic panel (07/11/2025 8:41 AM CDT) Sodium 139 135 - 145 mmol/L Comment:Testing performed by : [address] [address] Potassium, pl 4.3 3.3 - 4.9 mmol/L [facility] (MISA) Comment:Testing performed by : [address], [address] Chloride 105 97 - 110 mmol/L [facility] (MISA) Comment:Testing performed by : [address], [address] CO2 22 22 - 32 mmol/L [facility] (MISA) Comment:Testing performed by : [address], [address] Anion gap 12 2 - 15 mmol/L [facility] (MISA) Comment:Testing performed by : [address], [address] BUN 17 6 - 25 mg/dL [facility] (MISA) Comment:Testing performed by : [address], [address] Creatinine 0.66 0.60 - 1.10 mg/dL [facility] (MISA) Comment:Testing performed by : [address], [address] Glucose 120 70 - 199 mg/dL [facility] (MISA) Comment: Interpretive Data Fasting glucose >/= 126 mg/dl is diagnostic for diabetes. Fasting is defined as no caloric intake for at least 8 hours. Fasting glucose between 100 mg/dl to 125 mg/dl is diagnostic of prediabetes. In a patient with classic symptoms of hyperglycemia or hyperglycemic crisis, a random glucose >/= 200 mg/dl is diagnostic for diabetes. In the absence of unequivocal hyperglycemia, results should be confirmed by repeat testing. The classification and Diagnosis of Diabetes Diabetes Care 2021; 46: S19-S40. Current interpretive data was last revised 2022. Testing performed by: [address], [address] Calcium 8.8 8.5 - 10.3 mg/dL [facility] (MISA) Comment:Testing performed by : [facility], [address] [place] [address]., [address] Bilirubin, total 0.3 0.1 - 1.2 mg/dL [facility] (MISA) Comment:Testing performed by : [facility], [address] [place] [address]., [address] Protein, pl 6.5 6.5 - 8.5 g/dL [facility] (MISA) Comment:Testing performed by : [facility], [address] [place] [address], [address] Albumin 3.9 3.5 - 5.0 g/dL [facility] (MISA) Comment:Testing performed by : [facility], [address] [place] [address], [address] Alk phos 51 40 - 130 Units/L [facility] (MISA) Comment:Testing performed by : [facility], [address] [place] [address], [address] ALT 16 7 - 45 Units/L [facility] (MISA) Comment:Testing performed by : [facility], [address] [place] [address], [address] AST 20 10 - 45 Units/L [facility] (MISA) Comment:Testing performed by : [facility], [address] [place] [address], [address] Blood 07/11/2025 8:41 AM CDT 07/11/2025 2:56 PM CDT Harris Rodríguez NP LAB BLOOD ORDERABLES Final Result Performing Organization Address City/State/[facility] Co de Phone Number [facility] (AUBREY) 1 [facility] Department [place] [address] * (ABNORMAL) Diabetic Eye Exam (01/09/2023) us Historical Provider HEALTH MAINTENANCE Final Result from Last 3 Months or Most Recently Relevant to Health Maintenance Insurance [facility]/PPO Address: [address] [address] [place] [address] [facility] [employer] [facility]/PPO Address: [address] [address] [place] [address] Care Teams Power Systems Engineer Relationship Specialty Start Date End Date Lito Spain MD [address] [place] [address] PCP - General 02/12/15
[2025-10-11 08:21] VITALS: BP 128/93; PULSE 120; RESP 18; TEMP 36.8; O2SAT 99
--- NOTE | 2025-10-11 08:28 | ED.LOWEXIN ---
HPI - Extremity Injury (Lower) General Chief Complaint: Extremity Injury, Lower Stated Complaint: Right Foot Injury Time Seen by Provider: 10/11/25 08:28 Source: patient, RN notes reviewed and old records reviewed Mode of arrival: ambulatory (crutches) Limitations: no limitations History of Present Illness HPI Narrative: 40 year old female presents to express care on crutches with complaints of going down 2 front steps and thinks she slipped on gumball and twisted her foot and then landed on buttocks about 4 pm yesterday. Patient reports that about 10pm her right foot had increased pain and she was unable to bear heavenly to her foot. Patient reports that she has taken Tylenol for her pain and has been using crutches with non weight bearing to her right foot. MD complaint: foot injury (right) Onset (ago): day(s) (yesterday about 4 pm) Injury: Right: foot (lateral foot) Type of Injury: other (twisted foot then fell) Place: home Severity scale (1-10): 8 Treatments prior to arrival: other (crutches and Tylenol) Related Data Home Medications ?Medication ?Instructions ?Recorded ?Confirmed ?Last Taken ?Type lisinopril .ROUTE 10/11/25 Unknown History metformin .ROUTE 10/11/25 Unknown History norethindrone acetate 1 mg-ethinyl tablet 10/11/25 Unknown History estradiol 20 mcg tablet semaglutide subcut 10/11/25 Unknown History Allergies Allergy/AdvReac Type Severity Reaction Status Date / Time Penicillins Allergy Mild Unknown Verified 10/11/25 08:28 strawberry Allergy Mild Unknown Verified 10/11/25 08:28 tetracycline Allergy Mild Unknown Verified 10/11/25 08:28 amoxicillin Allergy Unknown Unknown Verified 10/11/25 08:28 azithromycin Allergy Unknown Unknown Verified 10/11/25 08:28 doxycycline Allergy Unknown Unknown Verified 10/11/25 08:28 Review of Systems Review of Systems: CONSTITUTIONAL: Denies fever, chills, or sweats. EYES: Denies visual changes, redness, or discharge. ENT: Denies rhinorrhea, congestion, sore throat, or otalgia. CARDIOVASCULAR: Denies chest pain, palpitations, or edema. RESPIRATORY: Denies cough or dyspnea. GASTROINTESTINAL: Denies abdominal pain, nausea, vomiting, or diarrhea. GENITOURINARY: Denies dysuria or hematuria. SKIN: Denies rash or itching. MUSCULOSKELETAL: Denies back pain, positive for pain to left lateral foot from injury, or myalgia. NEUROLOGIC: Denies headache, numbness, or weakness. PSYCHIATRIC: Denies anxiety or depression. All systems reviewed & are unremarkable except as noted in HPI and below PMFSH Past Medical History Medical History (Updated 10/11/25 @ 09:04 by Melissa Mayberry APRN) Fracture of right elbow Kidney stone Diabetes Family History Family History (Updated 10/11/25 @ 08:34 by Melissa Mayberry APRN) Mother Breast cancer Father Acute myocardial infarction Social History Social History (Updated 10/11/25 @ 09:04 by Melissa Mayberry APRN) Additional smoking assessment comments: never smoker Alcohol intake: current Alcohol use details: rare social Substance use type: does not use Living arrangements: with family Gender identity (if verbalized by the patient): Female Comments At time of signature, agree with nursing past medical, surgical, social and family history. There is no relevant family history pertinent to the presenting complaint Exam Narrative: GENERAL: Well-appearing, well-nourished, and in no acute distress. HEAD: Normocephalic, atraumatic. EYES: PERRLA and EOMI. ENT: Nares clear, no rhinorrhea or epistaxis. Mucous membranes moist.TM's normal, throat with no swelling or redness NECK: Supple.no lymphadenopathy CHEST: Clear to auscultation. No respiratory distress.no cough noted SAO2 99% on room air HEART: Regular rate and rhythm. No murmur heard. Normal peripheral pulses. ABDOMEN: Soft, nontender, nondistended, normal active bowel sounds. EXTREMITIES: Normal range of motion. No edema.Exception noted to right lateral foot with palpable tenderness to lateral foot and plantar aspect of lateral foot with minimal swelling noted. Patient has strong right pedal pulse, denies any tingling or numbness, foot warm to touch and pink SKIN: Warm, dry, no rash. NEURO: No focal deficits. Alert and oriented x3. Course Course Emergency Course: Patient is aware of diagnosis, understands and agrees to treatment plan.? Anticipatory guidance given.? Patient agrees to follow-up as directed and is aware of reasons to seek care at the emergency department. Portions of this record may have been created with voice recognition software Level of Care: Express Care Visit Vital Signs Vital signs: Vital Signs Temperature 36.8 C 10/11/25 08:21 Pulse Rate 120 H 10/11/25 08:21 Respiratory Rate 18 10/11/25 08:21 Blood Pressure 128/93 H 10/11/25 08:21 Pulse Oximetry 99 10/11/25 08:21 Oxygen Delivery Room Air 10/11/25 08:21 Temperature 36.8 C 10/11/25 08:21 Pulse Rate 120 H 10/11/25 08:21 Respiratory Rate 18 10/11/25 08:21 Blood Pressure 128/93 H 10/11/25 08:21 Pulse Oximetry 99 10/11/25 08:21 Oxygen Delivery Room Air 10/11/25 08:21 Reviewed MDM - Extremity Injury (Lower) Differential Diagnosis Differential diagnosis: Likely other (fracture of right foot, contusion of right foot, pain to right foot, injury to right foot) Medical Records Attestation: I reviewed the patient's medical records. Imaging Data Attestation: I personally reviewed and interpreted this imaging study as follows: My impression: no displaced fracture or dislocation of right foot, no bone lesion Radiologist's impression: [place] [id number] XRay Report Signed Patient: Estephania Saeed : 1985 MR#: [id number] Age: 40 Acct:[id number] Loc: [facility] ADM Date: 10/11/[address]: Ordering Physician: Melissa Mayberry APRN Date of Service: 10/11/25 Procedure(s): XR foot RT min 3V Accession Number(s): [id number] cc: Grabiel, Lito Love MD; Melissa Mayberry APRN~ EXAMINATION: XR foot RT min 3V DATE: 10/11/2025 08:36 INDICATION: Pain TECHNIQUE: Right foot were obtained. COMPARISON: None. IMPRESSION: 1. No displaced fracture dislocation or aggressive bone lesion seen. 2. No suspicious radiopaque foreign body seen. Reviewed, dictated and finalized at location A. 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 It is intended for [id number] communication. It is written in medical language and may contain unfamiliar abbreviations or verbiage. Medical documents are intended to carry relevant information, facts as evident, and the clinical opinion of the practitioner at the time of the encounter. This report may have been done utilizing a voice recognition system. Attempts have been made to correct errors. However, there may be uncorrected grammatical, spelling, and recognition errors present. The file time of this note does not necessarily represent the time of service. Dictated By: Braden Jose MD 10/11/25 0838 Signed By: <Electronically signed by Braden Jose MD in OV> Critical Care Time Critical Care Time Critical Care Time: No Discharge Plan Discharge Clinical Impression: Injury of right foot Qualifiers: Encounter type: initial encounter Qualified Code(s): S99.921A - Unspecified injury of right foot, initial encounter Patient Disposition: Home Condition: Stable Instructions: Antibiotic Form, Contusion in Adults (ED) Additional Instructions: Elastic wrap or orthopedic splint as directed for comfort for the next 5-7 days Crutches as directed if needed patient has own Tylenol for lesser pain Ibuprofen regularly for the next 2-3 days for the inflammation, 400-600 mg by mouth 3 times daily with food for the next 2-3 days Follow-up with orthopedic surgeon if any further complaints any increased symptoms Follow-up with PCP if further problems or concerns Ice to the area 20-30 minutes 4-6 times a day Elevate above heart If your symptoms persist, change or worsen significantly before you can contact your personal physician then please, without delay, go to the emergency department for further evaluation. Follow-up with PCP in 7-10 days or sooner if needed Follow up with PCP soon in regards to your blood pressure which is elevated above threshold for referral. Blood pressure above 120/80 may indicate pre-hypertension. 128/93 Patient Language: Maltese Prescriptions: No Action norethindrone ac-eth estradiol 1-20 mg-mcg tablet metformin .ROUTE semaglutide [Ozempic] subcut lisinopril .ROUTE Follow-up/Referrals: Harms,Lito Love M.D. [Primary Care Provider] Stand Alone Forms: Work/School Release IP Time of Disposition: 08:51 Quality Lang Coma Scale Eyes: Open Verbal: Oriented and Alert Motor: Follows Commands Lang Coma Total Score: 15
== END 2025-10-11 08:56 | disposition home or self-care (01) ==
PROVIDERS: Emergency Provider Registered Nurse; PCP Family Medicine
DX: S99.921A Unspecified injury of right foot, initial encounter (principal); W18.09XA Striking against other object with subsequent fall, initial encounter; E11.9 Type 2 diabetes mellitus without complications; Z79.84 Long term (current) use of oral hypoglycemic drugs
CPT/HCPCS: 73630; 99213; G0463